=== PATIENT | female | born 1960 | race Caucasian/White ===

== ENCOUNTER 2018-09-27 19:44 | Emergency (ER) | payer OTHER ==
[~2018-09-27] VITALS: Ht 147.3 cm; Wt 44.5 kg
--- OUTSIDE RECORDS SUMMARY | 2018-09-27 19:47 | XMS REPORT | Clinical Summary ---
Author Author [facility]EFAN[facility] Address Unknown Phone Unavailable Care Team Providers Care Balance Wheel Arm Burnisher Name Role Phone Danny Courtney PCP Allergies No Known Allergies Medications End Date Status Medication Sig Dispensed Refills Start Date Active alendronate (FOSAMAX) 70 Take 70 mg by 0 MG tablet mouth every 7 days Take in the morning with a full glass of water, on an empty stomach, and do not take anything else by mouth or lie down for the next 30 min. . Active acetaminophen-codeine Take 1 tablet 0 (TYLENOL #3) 300-30 mg by mouth per tablet every 4 (four) hours as needed for Pain. Active Problems Problem Noted Date Closed displaced fracture of shaft of fifth metacarpal bone of left hand 04/17/2018 Encounters Care Team Description Date Type Specialty Blaire Moreno MD 04/17/2018 Anesthesia Event Gerhard Valladares MD ORIF,HAND 04/17/2018 Surgery Gerhard Valladares MD Closed displaced fracture of shaft of fifth metacarpal bone of left hand, initial encounter (Primary Dx) 04/17/2018 Hospital Encounter Gerhard Valladares MD Closed fracture of left hand, initial encounter (Primary Dx) 04/14/2018 Orders Only General Internal Medicine Resource, Oqmt Preadmit Phone 04/08/2018 Hospital Pre-Admission Testing Encounter after 09/26/2017 Family History Medical History Relation Name Comments Lung cancer Mother Relation Name Status Comments Mother Social History Date Tobacco Use Types Packs/Day Years Used Current Every Day Smoker 0.25 Smokeless Tobacco: Never Used Tobacco Cessation: Ready to Quit: Yes; Counseling Given: Yes Comments: smokes 5 cigs per day Alcohol Use Drinks/Week oz/Week Comments Yes 4 Cans of 2.4 weekends beer Sex Assigned at Date Recorded Not on file Industry Job Start Date Occupation Not on file Not on file Not on file Travel End Travel History Travel Start No recent travel history available. Last Filed Vital Signs Time Taken Vital Sign Reading 04/17/2018 11:55 AM SERVER SERVICE ASSISTANT Blood Pressure 131/73 04/17/2018 11:55 AM SERVER SERVICE ASSISTANT Pulse 84 04/17/2018 11:00 AM SERVER SERVICE ASSISTANT Temperature 36.9 C (98.4 F) 04/17/2018 12:10 PM SERVER SERVICE ASSISTANT Respiratory Rate 20 04/17/2018 11:55 AM SERVER SERVICE ASSISTANT Oxygen Saturation 97% - Inhaled Oxygen - Concentration 04/17/2018 8:02 AM SERVER SERVICE ASSISTANT Weight 45 kg (99 lb 1.6 oz) 04/17/2018 8:02 AM SERVER SERVICE ASSISTANT Height 147.3 cm (4' 10") 04/17/2018 8:02 AM SERVER SERVICE ASSISTANT Body Mass Index 20.71 Plan of Treatment Not on file Implants Device Identifier Shelf Expiration Date Model / Serial / Lot Implanted Type Area Manufactur er 201.808 / / Scr Crtx Mhs [address] 2.0x8 Ns 201.808 - IMPLANTS Left: Hand SYNTHES:SY [id number] [employer] [place] Implanted: Qty: 1 on 04/17/2018 by Gerhard Valladares MD 201.810 / / Scr Crtx [employer] [address] 2.0x10 Ns 201.810 - IMPLANTS Left: Hand SYNTHES:SY [id number] [employer] [place] Implanted: Qty: 1 on 04/17/2018 by Gerhard Valladares MD Procedures Comments Procedure Name Priority Date/Time Associated Diagnosis [place] 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 GE [facility] Procedure Note Interface, External Ris In - 05/01/2018 10:54 AM SERVER SERVICE ASSISTANT FLUOROSCOPIC UNIT UTILIZED-NO INTERPRETATION REQUESTED. Performing Organization Address City/State/Zipcode Phone Number GE RIS after 09/26/2017 Insurance Payer Benefit Subscriber ID Type Phone Address Plan / Group [employer] - MGD CARE CIGNA xxxxxxxxx HMO/POS HMO/POS/OP EN ACCESS (Home) [place] [address]
--- OUTSIDE RECORDS SUMMARY | 2018-09-27 19:47 | XMS REPORT ---
Author Author [facility] Address Unknown Phone Unavailable Care Team Providers Care Fisher Sponge Hooking Name Role Phone Unavailable Unavailable Problems This patient has no known problems. Allergies, Adverse Reactions, Alerts This patient has no known allergies or adverse reactions. Medications This patient has no known medications. Results Test Description Test Time Test Comments Text Results Atomic Results Result Comments FARZANEH REARDON IN OR/30 MINUTE INCREMENTS 2018-05-01 10:54:00 Reason for exam:->ORIF LEFT HAND FLUOROSCOPIC UNIT UTILIZED-NO INTERPRETATION REQUESTED.
== END 2018-09-27 20:47 | disposition home or self-care (01) ==
LOC: ER 19:44
DX: K11.20 Sialoadenitis, unspecified (principal)
CPT/HCPCS: 99282